=== PATIENT | male | born 1990 | race Caucasian/White ===

== ENCOUNTER 2019-04-29 08:03 | Emergency (ER) | payer SELFPAY ==
[~2019-04-29] VITALS: Ht 182.9 cm; Wt 88.5 kg
[2019-04-29 08:23] VITALS: BP 122/76
--- NOTE | 2019-04-29 08:30 | Emergency Room Report ---
History of Present Illness General Chief Complaint: Male Urogenital Problems Source: Patient Present Illness HPI Patient states that from 4 AM this morning until around arrival here in the emergency department, the patient had a prolonged erection. He states that the erection was a partial erection for a while. However, there was a period of time where it was very painful and prolonged for significant portion of that time. He states that since he checked in here the erection has stopped. He now is back to non-erect. He denies medical problems. He denies any recent penile or or perineal trauma. He denies illicit drug use. He denies any performance-enhancing drugs of any type. He states that he has been drinking alcohol and not getting a lot of sleep. The erection did start while he was sleeping last night. He had a similar episode about 1 week ago that only lasted about 1 hour and then resolved spontaneously. He states that his symptoms have completely resolved at this time, however, when he checked in he had still had the erection. He states the symptoms are right about the 4-hour kailee. He has no other complaints. Allergies: Coded Allergies: No Known Allergies (Unverified , 04/29/19) Patient History Past Medical History: none Social History: Reports: alcohol use; Denies: smoking, drug use Reviewed Nursing Documentation: PMH: Agreed; PSxH: Agreed Nursing Documentation-PMH Past Medical History: No Stated History Review of Systems All Other Systems: negative except mentioned in HPI Physical Exam Vital Signs Date Time Temp Pulse Resp B/P (MAP) Pulse Ox O2 Delivery O2 Flow Rate FiO2 04/29/19 08:05 97.9 68 18 126/73 (90) 98 Room Air Sp02 EP Interpretation: reviewed, normal General Appearance: no apparent distress, alert, GCS 15, non-toxic Head: normocephalic, atraumatic Eyes: bilateral eye normal inspection ENT: hearing grossly normal, normal pharynx, no angioedema, normal voice Neck: normal inspection Respiratory: no respiratory distress, no retraction, no accessory muscle use, speaking full sentences Rectal: deferred Genitourinary: deferred Musculoskeletal: back normal, gait/station normal, normal range of motion, non- tender Neurologic: alert, oriented x3, responsive, motor strength/tone normal, sensory intact, speech normal Psychiatric: judgement/insight normal, memory normal, mood/affect normal, no suicidal/homicidal ideation Medical Decision Making Diagnostic Impression: Primary Impression: Priapism ER Course This patient had a prolonged episode of priapism. However, the prefer them is resolved at the time of my evaluation. The patient did decline my physical examination. However, I do not feel that this is necessary if the symptoms are resolved. The patient has no known medical history and therefore this is likely idiopathic. The patient was instructed to follow-up with the urologist as a precaution. He was also instructed that he should come in earlier than the 4-hour kailee and I recommended that he present to a medical facility at the 2 -hour kailee if he has a prolonged erection in the future. The patient symptoms are resolved. He is given close return precautions and follow-up instructions. Last Vital Signs Date Time Temp Pulse Resp B/P (MAP) Pulse Ox O2 Delivery O2 Flow Rate FiO2 04/29/19 08:05 97.9 68 18 126/73 (90) 98 Room Air Status: improved Disposition: HOME, SELF-CARE Condition: Improved Scripts No Active Prescriptions or Reported Meds Marga Ervin DO Apr 29, 2019 08:29
[2019-04-29 08:31] VITALS: BP 122/76
== END 2019-04-29 08:31 | disposition home or self-care (01) ==
LOC: EMR 08:25
DX: N48.30 Priapism, unspecified (principal)
CPT/HCPCS: 99281